=== PATIENT | male | born 2000 | race Caucasian/White ===

== ENCOUNTER 2022-08-20 22:27 | Emergency (ER) | payer OTHER, MEDICAID, SELFPAY ==
[2022-08-20 22:40] VITALS: BP 148/85; PULSE 100; RESP 18; TEMP 36.1; O2SAT 97
--- NOTE | 2022-08-21 01:03 | ED.GENADULT ---
HPI - General Adult General Date Seen: 08/21/22 Chief complaint: Allergic Reaction Stated complaint: allergic reaction Time Seen by Provider: 08/21/22 00:00 Source: patient Mode of arrival: ambulatory Limitations: no limitations History of Present Illness HPI narrative: Patient is a 22-year-old male who awoke this morning with an itchy erythematous rash around his neck and upper arms. During the course the day he took five Benadryl with minimal improvement. He went to the [facility] urgent care this evening and was given a dose of oral dexamethasone and sent home for prescription for dexamethasone. Since getting back home he is taking one of those pills and his rash continues to be more symptomatic. He denies lip or tongue swelling. He denies wheezing or shortness of breath any significance. He has never had a reaction and this previously. He cannot think of any specific cause. When his symptoms got worse he came into the emergency department. Related Data Home Medications Medication Instructions Recorded Confirmed albuterol sulfate 90 mcg/actuation inhalation 08/20/22 aerosol inhaler (Ventolin HFA) dexamethasone 4 mg tablet mg 08/20/22 escitalopram oxalate 10 mg tablet mg 08/20/22 omeprazole 40 mg capsule,delayed mg 08/20/22 release Allergies Allergy/AdvReac Type Severity Reaction Status Date / Time droperidol Allergy Intermediate Verified 08/20/22 22:47 Penicillins Allergy Intermediate Verified 08/20/22 22:47 Review of Systems Narrative: Review of systems is outlined above otherwise noted to be negative. Exam Narrative: Exam Narrative: Vitals noted. HEENT: Conjunctiva clear. Tympanic membranes are pearly white bilaterally. Posterior pharynx is clear without erythema or exudate. Neck is supple without adenopathy, thyromegaly, carotid bruit. Lungs: Clear to auscultation in all arora. No wheezes, rales, rhonchi. Heart: Regular rate and rhythm without murmur. Abdomen: Soft and nontender. No guarding, rigidity, rebound. Bowel sounds are normal. No palpable masses. Extremities: No cyanosis or edema. Good distal pulses. Skin: He has an erythematous, warm, macular rash with some papules. No vesicles. Nothing open or draining. This is most concentrated on his right upper arm, upper chest, neck. Neurologic: Awake, alert, fully oriented. Neurologic exam is nonfocal. Const: Vital Signs, click to edit/add: Vital Signs - 24 hr 08/20/22 22:40 Temperature 97.0 F L Pulse Rate [Left F emoral] 100 Respiratory Rate 18 Blood Pressure [Ri ght Upper Arm] 148/85 H Pulse Oximetry 97 Oxygen Delivery Me thod Room Air Course Course Hospital Course: Patient was seen and examined. An IV is established. He receives Solu-Medrol 125 mg IV, famotidine 20 mg IV, Benadryl 50 mg IV. He had good improvement in his rash in symptoms. No new symptoms develop. Vital Signs Vital signs: Initial Vital Signs Temperature 97.0 F L 08/20/22 22:40 Temperature Source Temporal Artery Scan 08/20/22 22:40 Pulse Rate 100 08/20/22 22:40 Pulse Rhythm 08/20/22 22:40 Respiratory Rate 18 08/20/22 22:40 Blood Pressure 148/85 H 08/20/22 22:40 Blood Pressure Mean 106 08/20/22 22:40 Blood Pressure Position Semi-Fowlers 08/20/22 22:40 Pulse Oximetry 97 08/20/22 22:40 Oxygen Delivery Method 08/20/22 22:40 Vital Signs Temperature 97.0 F L 08/20/22 22:40 Pulse Rate 100 08/20/22 22:40 Respiratory Rate 18 08/20/22 22:40 Blood Pressure 148/85 H 08/20/22 22:40 Pulse Oximetry 97 08/20/22 22:40 Oxygen Delivery Method 08/20/22 22:40 Temperature 97.0 F L 08/20/22 22:40 Pulse Rate 100 08/20/22 22:40 Respiratory Rate 18 08/20/22 22:40 Blood Pressure 148/85 H 08/20/22 22:40 Pulse Oximetry 97 08/20/22 22:40 Oxygen Delivery Method 08/20/22 22:40 Discharge Plan Discharge Clinical Impression: Urticaria Patient Disposition: Home, Self-Care Condition: Improved Instructions: Urticaria (ED), Acute Rash (ED) Additional Instructions: Dexamethasone 4 mg twice a day for 5 days. Benadryl 25-50 mg every 6 hours as needed for itching. Pepcid 20 mg twice a day as needed for itching. Keep skin cool. Follow up in the clinic if not resolving over the next 3 days. Activity Level: No Restrictions Discharge Diet: Regular Prescriptions: No Action omeprazole 40 mg capsule,delayed release(DR/EC) dexamethasone 4 mg tablet albuterol sulfate [Ventolin HFA] 90 mcg/actuation HFA aerosol inhaler INHALATION escitalopram oxalate 10 mg tablet Follow Up/Referrals: Provider,Not a Local [Primary Care Provider] - Stand Alone Forms: [facility] Info Instructions
[2022-08-21] MEDS: diphenhydrAMINE 50 MG/ML inj 25 MG IVP (01:58)
[2022-08-21] MEDS: METHYLPREDNISOLONE SOD SUCC 62.5 MG/ML (125) 125 MG IVP (01:58)
[2022-08-21] MEDS: FAMOTIDINE 10 MG/ML inj 20 MG IVP (01:58)
== END 2022-08-21 02:57 | disposition home or self-care (01) ==
PROVIDERS: Emergency Provider Family Medicine
DX: L50.9 Urticaria, unspecified (principal)
CPT/HCPCS: 96374; 96375; 99283; J1200; J2930; S0028